=== PATIENT | male | born 1970 | race Caucasian/White ===

== ENCOUNTER 2024-04-21 09:45 | Emergency (ER) | payer SELFPAY ==
[2024-04-21] MEDS: Proparacaine 0.5% Ophth Soln 15 ML Bottle EYEBOTH STA (10:12)
== END 2024-04-21 10:57 | disposition home or self-care (01) ==
LOC: JP.ED 09:45
DX: T15.02XA Foreign body in cornea, left eye, initial encounter (principal); W45.8XXA Other foreign body or object entering through skin, initial encounter
CPT/HCPCS: 65220; 99283; 99283-25; A9270-GY

== ENCOUNTER 2024-09-13 16:01 | Emergency (ER) | payer SELFPAY | END 2024-09-13 18:12 | disposition left against medical advice (07) | LOC: JP.ED 16:01 | DX: Z53.21 Procedure and treatment not carried out due to patient leaving prior to being seen by health care provider (principal) ==

== ENCOUNTER 2025-03-26 17:12 | Emergency (ER) | payer SELFPAY | END 2025-03-26 18:15 | disposition left against medical advice (07) | LOC: JP.ED 17:12 | DX: Z53.21 Procedure and treatment not carried out due to patient leaving prior to being seen by health care provider (principal) ==